=== PATIENT | male | born 1960 | race Caucasian/White ===

== ENCOUNTER 2018-11-26 02:05 | Emergency (ER) | payer BC ==
[~2018-11-26] VITALS: Ht 177.8 cm; Wt 104.5 kg
[2018-11-26] MEDS ORDERED: CAND32TA9 PO (02:14)
[2018-11-26] MEDS ORDERED: LEVO150T7 PO (02:14)
[2018-11-26] MEDS ORDERED: CAND16TA7 PO (02:14)
[2018-11-26] MEDS ORDERED: LORA0.5T11 PO (02:14)
[2018-11-26] MEDS ORDERED: CYMB60CA3 PO (02:14)
[2018-11-26] MEDS ORDERED: BISO5TAB5 PO (02:14)
[2018-11-26] MEDS ORDERED: SIMV40TA2 PO (02:14)
[2018-11-26] MEDS: ASPIRIN 325 MG TAB PO ONE (02:45)
[2018-11-26 03:02] LABS: BASO # 0.1 10^3/uL (0.0-0.2); BASO % 0.5 % (0.0-1.0); EOS # 0.2 10^3/uL (0.0-0.50); EOS % 2.4 % (0.0-3.0); HEMATOCRIT 41.2 % (42.0-52.0); HEMOGLOBIN 14.5 g/dl (13.5-17.5); LYMPH # 1.5 10^3/uL (1.5-4.5); MEAN CORPUSCULAR HEMOGLOBIN 32.2 pg (27.0-33.0); MEAN CORPUSCULAR HGB CONC 35.2 g/dl (32.0-36.5); MEAN CORPUSCULAR VOLUME 91.6 fl (80.0-96.0); MONO % 10.4 % (0.0-5.0); NEUTROPHILS # 6.9 10^3/uL (1.8-7.7); NEUTROPHILS % 71.2 % (36.0-66.0); PLATELET COUNT, AUTOMATED 201 10^3/uL (150-450); WHITE BLOOD COUNT 9.7 10^3/uL (4.0-10.0)
[2018-11-26 03:06] LABS: INR 0.99; PROTHROMBIN TIME 13.2 SECONDS (12.1-14.4)
[2018-11-26 03:07] LABS: PARTIAL THROMBOPLASTIN TIME 31.3 SECONDS (25.4-37.6)
[2018-11-26 03:14] LABS: BLOOD UREA NITROGEN 19 MG/DL (7-18); CALCIUM LEVEL 7.7 MG/DL (8.5-10.1); CARBON DIOXIDE LEVEL 26 MEQ/L (21-32); CHLORIDE LEVEL 104 MEQ/L (98-107); CPK CREATINE PHOSPHOKINASE 147 U/L (39-308); GLOMERULAR FILTRATION RATE > 60.0 (>56); GLUCOSE, FASTING 105 MG/DL (70-100); MB/CK RELATIVE INDEX 1.02 (< OR =4); POTASSIUM SERUM 3.9 MEQ/L (3.5-5.1); SODIUM LEVEL 138 MEQ/L (136-145); TROPONIN I < 0.02 NG/ML (< 0.10)
[2018-11-26] MEDS ORDERED: ISOVUE-370 76% 125ML VIAL (Q9967 PER ML) As Ordered ONE (03:40)
[2018-11-26] MEDS: KETOROLAC 30 MG/ML VIAL (J1885) IV ONE (04:45)
--- NOTE | 2018-11-26 05:58 | REPVR ---
EXAM: CT Angiography Chest With Contrast EXAM DATE/TIME: 11/26/2018 3:36 AM CLINICAL HISTORY: 58 years old, male; Pain; Chest pain; Type not specified; Additional info: Cp TECHNIQUE: Imaging protocol: Axial computed tomographic angiography images of the chest with intravenous contrast using CT angiography protocol. Coronal and sagittal reformatted images were created and reviewed. 3D rendering: MIP reconstructed images were created and reviewed. Radiation optimization: All CT scans at this facility use at least one of these dose optimization techniques: automated exposure control; mA and/or kV adjustment per patient size (includes targeted exams where dose is matched to clinical indication); or iterative reconstruction. Contrast material: iso Contrast volume: 75 ml Contrast route: ac COMPARISON: No relevant prior studies available. FINDINGS: Pulmonary arteries: The pulmonary arteries are not enlarged. No filling defects are seen to indicate an acute pulmonary embolism. Aorta: There is no thoracic aortic aneurysm or evidence of dissection. Lungs: There is hazy density dependently in both lower lobes which is nonspecific but probably due to subsegmental atelectasis. Bands of density consistent with platelike atelectasis are present in both lung bases. Pleural space: There are no pleural effusions present. Heart: The heart is normal in size. Upper abdomen: The visualized upper abdomen structures are unremarkable. Lymph nodes: No lymphadenopathy is seen. Bones/joints: No suspicious osseous lesions. No acute fractures or dislocations. Soft tissues: Unremarkable. IMPRESSION: 1. No evidence of acute pulmonary embolism. 2. Platelike atelectasis in both lung bases. Dependent hazy density in both lower lobes, probably due to incomplete expansion and subsegmental atelectasis. Electronically signed by: Elvia Ybarra On 11/26/2018 05:57:44 AM
[2018-11-26 06:00] VITALS: BP 135/77
[2018-11-26 06:01] LABS: CPK CREATINE PHOSPHOKINASE 144 U/L (39-308); MB/CK RELATIVE INDEX 0.97 (< OR =4); TROPONIN I < 0.02 NG/ML (< 0.10)
[2018-11-26] MEDS ORDERED: KETO10TAB PO (06:11)
--- NOTE | 2018-11-26 17:04 | ECGEPIP ---
Stationary ECG Study [facility] - ED Test Date: 2018-11-26 Pat Name: CYNDI WALTER Department: Room: - Gender: M [address] Magistrate: : 1960 Requested By: KYLAH RAMIREZ Order Number: [id number] Reading MD: [place] Measurements Intervals [place] Rate: 100 P: 48 [place]: 164 QRS: 25 QRSD: 86 T: 21 QT: 336 QTc: 433 Interpretive Statements SINUS TACHYCARDIA ABNORMAL RHYTHM ECG NONSPECIFIC ST T WAVE CHANGES DELAYED R WAVE PROGRESSION NO OLD ECG FOR COMPARISON Electronically Signed On 11-26-2018 17:04:36 EDT by [place]
--- NOTE | 2018-11-26 19:32 | ECGEPIP ---
Stationary ECG Study [facility] - ED Test Date: 2018-11-26 Pat Name: CYNDI WALTER Department: Room: - Gender: M Ambulatory Service Representative: : 1960 Requested By: KYLAH RAMIREZ Order Number: [id number] Reading MD: [place] Measurements Intervals [place] Rate: 96 P: 50 [place]: 183 QRS: 25 QRSD: 86 T: 14 QT: 351 QTc: 443 Interpretive Statements SINUS RHYTHM NONSPECIFIC ST T WAVE CHANGES DELAYED R WAVE PROGRESSION CW 11/26/[address] T WAVE CHANGES Electronically Signed On 11-26-2018 19:31:51 EDT by Sunny [place]
== END 2018-11-26 06:20 | disposition home or self-care (01) ==
LOC: M ED 02:05
DX: R07.1 Chest pain on breathing (principal); R94.31 Abnormal electrocardiogram [ECG] [EKG]; I10 Essential (primary) hypertension; J45.909 Unspecified asthma, uncomplicated; E78.5 Hyperlipidemia, unspecified; F41.9 Anxiety disorder, unspecified; F33.9 Major depressive disorder, recurrent, unspecified; Z79.899 Other long term (current) drug therapy; Z79.890 Hormone replacement therapy
CPT/HCPCS: 71275; 80048; 82550; 82553; 84484; 85025; 85610; 85730; 93005; 96374; 99285; J1885; Q9967

== ENCOUNTER → 2019-11-16 | Outpatient (CLI) | payer BC ==
[~2019-11-16] MED LIST: BISO5TAB14 PO; CAND16TA7 PO; CAND32TA9 PO; CYMB60CA3 PO; KETO10TAB PO; LEVO150T7 PO; LORA0.5T5 PO; SIMV40TA20 PO
--- NOTE | 2019-11-18 10:28 | SLEEPCENT ---
DATE OF PROCEDURE: 11/16/2019 ORDERED BY: Yessi Abreu Nocturnal polysomnography was performed for the evaluation of sleep physiology in this patient with a history of excessive somnolence and nonrestorative sleep. 8 hours and 1 minute of data were reviewed. There were 366 minutes of sleep identified. Sleep latency was prolonged at 70 minutes. REM latency was further prolonged at 196 minutes. Sleep architecture initially showed poor progression. Significant improvement was appreciated and there was REM rebound following interventions. The overall sleep efficiency was 76.9%. The patient's electrocardiogram showed a sinus rhythm with an average heart rate of 75 beats per minute. Electroencephalogram (EEG) showed normal waveforms for awake and sleep. There were 168 respiratory events identified of 10 seconds in duration or greater for an apnea-hypopnea index of 27.5. Having clearly established the presence of obstructive sleep apnea syndrome early in testing, the study was stopped for the application of pressure therapy. The patient was fit with a ResMed Air Fit F30 full face mask of medium size and 4 cm of water pressure were applied to the circuit and the lights were extinguished. Pressure titration ensued and over the next several hours pressure increases were made from 4 to 18. Central apneas did emerge, however, best sleep was seen on a C-PAP pressure of 17 cm. Despite C-PAP at 17 cm, the patient did display some hypopneic respiratory events and some brief central apneas. There was also noted some activity in the limb leads. Limb movement arousal index was 2.5. IMPRESSION: Severe obstructive sleep apnea syndrome (G47.33). Apnea-hypopnea index 27.5. RECOMMENDATION: Initiation of pressure therapy at 17 cm of water would seem reasonable based on this study. However, given the severity of the patient's disease and the emergence of central apneas, referral back to the sleep disorder center for a full night of retitration is recommended. A bilevel pressure device may be needed and backup rate may be necessary.
== END ==
LOC: M SLEEP 19:39
PROVIDERS: ATTEND Nurse Practitioner Family
DX: R06.83 Snoring (principal)

== ENCOUNTER → 2019-11-30 | Outpatient (CLI) | payer BC ==
--- NOTE | 2019-12-01 18:39 | SLEEPCENT ---
DATE OF PROCEDURE: 11/30/2019 ORDERED BY: SIMEON Painting Nocturnal polysomnography was performed for the titration of pressure therapy in this patient with obstructive sleep apnea syndrome, apnea-hypopnea index of 27.5. For testing a ResMed AirFit F30 full face mask of medium size was used, 5 cm of water pressure were applied to the circuit and the lights were extinguished. 8 hours and 3 minutes of data were reviewed. There were 269.5 minutes of sleep identified. Sleep latency was quite prolonged at 170 minutes. Rapid eye movement (REM) latency was also prolonged at 163 minutes. Sleep architecture improved significantly on optimal pressure therapy. There were 2 REM cycles. Overall sleep efficiency was only 57.5%. The patient's electrocardiogram showed a sinus rhythm with an average heart rate of 70 beats per minute. EEG showed normal waveforms for awake and sleep. Optimal sleep was seen on a continuous positive airway pressure (CPAP) pressure of +15 with which pressure the patient slept through REM with only mild hypopneic patterning and no significant oxygen desaturations. IMPRESSION: Obstructive sleep apnea syndrome (G47.33). RECOMMENDATIONS: Nightly use of pressure therapy 15 cm of water.
== END ==
LOC: M SLEEP 20:00
PROVIDERS: ATTEND Nurse Practitioner Family
DX: G47.33 Obstructive sleep apnea (adult) (pediatric) (principal)